=== PATIENT | female | born 1995 | race African-American/Black ===

== ENCOUNTER 2019-04-18 03:00 | Emergency (ER) | payer OTHER ==
[~2019-04-18] VITALS: Ht 160 cm; Wt 100.9 kg
[2019-04-18 03:02] VITALS: TEMP 98.3
[2019-04-18] MEDS ORDERED: CELEXA10 MG PO (03:27)
[2019-04-18] MEDS ORDERED: NATURAL IRON65 MG PO (03:27)
[2019-04-18] MEDS ORDERED: PROAIR HFA0.09 MG/AC IH (03:27)
[2019-04-18] MEDS ORDERED: PREDNISONE20 MG PO (03:30)
[2019-04-18 04:41] VITALS: BP 118/52; PULSE 78
== END 2019-04-18 04:42 | disposition home or self-care (01) ==
LOC: COL.ER 03:00
DX: T78.40XA Allergy, unspecified, initial encounter (principal)
CPT/HCPCS: J1200; J2930